=== PATIENT | female | born 1990 | race Hispanic/Latino ===

== ENCOUNTER 2017-02-28 15:27 | Emergency (ER) | payer MEDICAID | END 2017-02-28 16:23 | disposition home or self-care (01) | LOC: EDH 15:27 | DX: N61.0 Mastitis without abscess (principal); Z98.890 Other specified postprocedural states; Z87.891 Personal history of nicotine dependence ==

== ENCOUNTER 2019-05-05 13:15 | Emergency (ER) | payer MEDICAID, OTHER | END 2019-05-05 13:59 | disposition home or self-care (01) | LOC: EDH 13:15 | DX: F41.1 Generalized anxiety disorder (principal); F31.9 Bipolar disorder, unspecified; F20.9 Schizophrenia, unspecified; Z72.0 Tobacco use ==

== ENCOUNTER 2020-11-20 11:10 | Emergency (ER) | payer OTHER ==
[~2020-11-20] VITALS: Ht 165.1 cm; Wt 59.0 kg
[2020-11-20 11:12] VITALS: BP 125/72
[2020-11-20] MEDS ORDERED: FLUORESCEIN SODIUM 1 STRIP STRIP OP SCH (11:30)
[2020-11-20] MEDS ORDERED: TETRACAINE HCL 0.5% 4 ML OPHTH SOLN OP SCH (11:30)
[2020-11-20] MEDS ORDERED: NA BORATE/BORIC AC/H2O/NACL 120 ML OPHTH IRRIG SOLN OP SCH (11:30)
[2020-11-20 11:39] VITALS: BP 101/60
[2020-11-20] MEDS ORDERED: GENTAMICIN SULFATE 0.3% 3.5 GM OPHTH OINT OU SCH (12:33)
[2020-11-20] MEDS ORDERED: OFLO5DRO OU (12:55)
== END 2020-11-20 14:06 | disposition home or self-care (01) ==
LOC: EDH 11:10
DX: S05.01XA Injury of conjunctiva and corneal abrasion without foreign body, right eye, initial encounter (principal); J45.909 Unspecified asthma, uncomplicated; H57.12 Ocular pain, left eye; X58.XXXA Exposure to other specified factors, initial encounter; Y93.89 Activity, other specified; Y92.89 Other specified places as the place of occurrence of the external cause; Y99.8 Other external cause status

== ENCOUNTER 2021-09-18 12:29 | Emergency (ER) | payer OTHER ==
[~2021-09-18] VITALS: Ht 165.1 cm; Wt 54.4 kg
[~2021-09-18 12:29] MED LIST: OFLO5DRO OU
[2021-09-18 12:31] VITALS: BP 101/42
[2021-09-18] MEDS ORDERED: TETANUS/DIPHTHERIA TOXOID [ADULT] 0.5 ML VIAL IM ONE (14:30)
[2021-09-18] MEDS ORDERED: KETOROLAC 30MG VIAL (30MG/ML) IM ONE (15:35)
[2021-09-18] MEDS ORDERED: CEPH500B PO (15:37)
== END 2021-09-18 15:45 | disposition home or self-care (01) ==
LOC: EDH 12:29
DX: S91.331A Puncture wound without foreign body, right foot, initial encounter (principal); X58.XXXA Exposure to other specified factors, initial encounter; Y93.89 Activity, other specified; Y92.89 Other specified places as the place of occurrence of the external cause; Y99.8 Other external cause status
CPT/HCPCS: 99284; 90714; 73630; 96372; 90471; J1885

== ENCOUNTER 2021-10-04 08:14 | Emergency (ER) | payer OTHER ==
[~2021-10-04] VITALS: Ht 165.1 cm; Wt 54.9 kg
[~2021-10-04 08:14] MED LIST changes: +CEPH500B PO
[2021-10-04 08:55] LABS: BASOPHILS % (AUTO) 0.4 % (0.0-5.0); EOSINOPHILS % (AUTO) 2.6 % (0.0-8.0); HEMATOCRIT 39.6 % (36-48); LYMPHOCYTES % (AUTO) 20.9 % (21.0-51.0); MEAN CORPUSCULAR HEMOGLOBIN 30.3 pg (27.0-33.0); MEAN CORPUSCULAR HGB CONC 33.3 g/dL (32.0-36.0); MEAN CORPUSCULAR VOLUME 90.8 fL (79-99); MONOCYTES % (AUTO) 5.7 % (3.0-13.0); PLATELET COUNT (AUTO) 241 K/uL (130-400); RED BLOOD CELL COUNT(AUTO) 4.36 MIL/uL (4.00-5.50); RED CELL DISTRIBUTION WIDTH 13.4 % (11.0-15.5); WHITE BLOOD COUNT (AUTO) 11.1 K/uL (4.8-10.8)
[2021-10-04 09:00] LABS: CARBON DIOXIDE 28 mmol/L (21-32); CHLORIDE 103 mmol/L (101-111); CREATININE 0.7 mg/dL (0.5-1.5); GLOMERULAR FILTR. RATE CALC 104 mL/min (>60); GLUCOSE,RANDOM 103 mg/dL (70-105); POTASSIUM 4.1 mmol/L (3.5-5.1); SODIUM SERUM 138 mmol/L (136-145); UREA NITROGEN, BLOOD 12 mg/dL (7-18)
[2021-10-04] MEDS ORDERED: TETANUS/DIPHTHERIA TOXOID [ADULT] 0.5 ML VIAL IM ONE (09:00)
[2021-10-04] MEDS ORDERED: HYDROCODONE/ACETAMINOPHEN 5/325 MG TAB PO ONE (09:00)
[2021-10-04 09:05] LABS: ALANINE AMINOTRANSFERASE 28 U/L (12-78); ALBUMIN 3.8 g/dL (3.5-5.0); ASPARTATE AMINOTRANSFERASE 23 U/L (10-37); TOTAL PROTEIN, SERUM 7.2 g/dL (6.0-8.3)
[2021-10-04 09:06] LABS: CRP QUANTITATIVE < 2.00 mg/L (0.00-9.0)
[2021-10-04] MEDS ORDERED: LIDOCAINE HCL-MPF 2% 10ML AMP IJ ONE (09:07)
[2021-10-04 10:40] VITALS: BP 126/72
[2021-10-04] MEDS ORDERED: IBUP-2070 PO (10:51)
[2021-10-04] MEDS ORDERED: CLIN-141 PO (10:51)
[2021-10-04] MEDS ORDERED: CLINDAMYCIN 150 MG CAP ONE (10:53)
[2021-10-04] MEDS ORDERED: CLINDAMYCIN 150 MG CAP PO ONE (11:00)
[2021-10-04] MEDS ORDERED: MORPHINE 4 MG SYG IM SCH (11:30)
== END 2021-10-04 11:23 | disposition home or self-care (01) ==
LOC: EDH 08:14
DX: L02.611 Cutaneous abscess of right foot (principal); F20.9 Schizophrenia, unspecified; Z87.19 Personal history of other diseases of the digestive system
CPT/HCPCS: 99284; 10061; 80053; 85025; 86140; 36415; 90714; 73660; 90471; 96372; J2270; J3490

== ENCOUNTER 2021-11-21 01:34 | Emergency (ER) | payer OTHER ==
[~2021-11-21 01:34] MED LIST changes: +CLIN-141 PO; +IBUP-2070 PO
[2021-11-21 02:05] LABS: APPEARANCE,URINE CLEAR (CLEAR); BILIRUBIN,URINE NEGATIVE (NEGATIVE); COLOR,URINE LIGHT-YELLOW (YELLOW); GLUCOSE, URINE (UA) NEGATIVE (NEGATIVE); KETONES,URINE NEGATIVE (NEGATIVE); LEUKOCYTE ESTERASE ,URINE NEGATIVE Leu/uL (NEGATIVE); NITRATE,URINE NEGATIVE (NEGATIVE); OCCULT BLOOD,URINE NEGATIVE (NEGATIVE); PROTEIN,URINE 20 mg/dL (NEGATIVE); UROBILINOGEN,URINE 0.2 mg/dL (0.2-1.0)
[2021-11-21 02:06] LABS: HCG,QUALITATIVE URINE NEGATIVE (NEGATIVE)
[2021-11-21 02:09] LABS: AMPHET/METH SCREEN,URINE NEGATIVE (NEGATIVE); BARBITURATE SCREEN, URINE NEGATIVE (NEGATIVE); BENZODIAZEPINES SCREEN,URINE NEGATIVE (NEGATIVE); CANNABINOID SCREEN,URINE NEGATIVE (NEGATIVE); COCAINE SCREEN,URINE POSITIVE (NEGATIVE); PHENCYCLIDINE SCREEN,URINE NEGATIVE (NEGATIVE)
[2021-11-21 02:11] LABS: BACTERIA,URINE RARE /HPF (None Seen); MUCUS,URINE FEW LPF (None Seen); SQUAMOUS EPITHELIAL CELL,UR FEW /HPF (0-2)
[2021-11-21] MEDS ORDERED: ACETAMINOPHEN 500 MG TABLET ONE (04:54)
[2021-11-21 06:16] VITALS: BP 134/74
== END 2021-11-21 06:25 | disposition home or self-care (01) ==
LOC: EDH 01:34
DX: R51.9 Headache, unspecified (principal); R11.10 Vomiting, unspecified; F20.9 Schizophrenia, unspecified; F31.9 Bipolar disorder, unspecified; F17.200 Nicotine dependence, unspecified, uncomplicated; Z79.1 Long term (current) use of non-steroidal anti-inflammatories (NSAID)
CPT/HCPCS: 70450; 80305; 81001; 81025

== ENCOUNTER 2022-08-15 06:30 | Emergency (ER) | payer OTHER ==
[~2022-08-15] VITALS: Ht 162.6 cm; Wt 69.4 kg
[2022-08-15] MEDS ORDERED: TETANUS/DIPHTHERIA TOXOID [ADULT] 0.5 ML VIAL IM ONE (07:00)
[2022-08-15 07:11] LABS: BASOPHILS % (AUTO) 0.6 % (0.0-5.0); EOSINOPHILS % (AUTO) 4.9 % (0.0-8.0); HEMATOCRIT 38.7 % (36-48); LYMPHOCYTES % (AUTO) 31.9 % (21.0-51.0); MEAN CORPUSCULAR HEMOGLOBIN 27.5 pg (27.0-33.0); MEAN CORPUSCULAR HGB CONC 32.8 g/dL (32.0-36.0); MEAN CORPUSCULAR VOLUME 83.9 fL (79-99); MONOCYTES % (AUTO) 7.1 % (3.0-13.0); NEUTROPHILS % (AUTO) 55.2 % (40.0-77.0); PLATELET COUNT (AUTO) 249 K/uL (130-400); RED BLOOD CELL COUNT(AUTO) 4.61 MIL/uL (4.00-5.50); RED CELL DISTRIBUTION WIDTH 12.9 % (11.0-15.5); WHITE BLOOD COUNT (AUTO) 6.3 K/uL (4.8-10.8)
[2022-08-15 07:26] LABS: ALBUMIN 3.2 g/dL (3.5-5.0); CREATININE 0.6 mg/dL (0.5-1.5); CRP QUANTITATIVE 5.7 mg/L (0.00-9.0); POTASSIUM 3.8 mmol/L (3.5-5.1); TOTAL PROTEIN, SERUM 7.1 g/dL (6.0-8.3)
[2022-08-15] MEDS ORDERED: IBUPROFEN 600 MG TABLET PO ONE (08:00)
[2022-08-15] MEDS ORDERED: CEPH500B PO (08:19)
[2022-08-15] MEDS ORDERED: IBUP-2070 PO (08:19)
[2022-08-15] MEDS ORDERED: CEPHALEXIN 500 MG CAPSULE ONE (08:27)
[2022-08-15] MEDS ORDERED: CEPHALEXIN 500 MG CAPSULE PO ONE (08:30)
[2022-08-15 08:54] VITALS: BP 126/78
== END 2022-08-15 09:05 | disposition home or self-care (01) ==
LOC: EDH 06:30
DX: S61.012A Laceration without foreign body of left thumb without damage to nail, initial encounter (principal); F17.200 Nicotine dependence, unspecified, uncomplicated; Z98.890 Other specified postprocedural states; Z79.899 Other long term (current) drug therapy; X58.XXXA Exposure to other specified factors, initial encounter; Y93.89 Activity, other specified; Y92.89 Other specified places as the place of occurrence of the external cause; Y99.8 Other external cause status
CPT/HCPCS: 36415; 73130; 80053; 84703; 85025; 86140; 90471; 90714

== ENCOUNTER 2022-09-27 17:43 | Emergency (ER) | payer OTHER ==
[~2022-09-27] VITALS: Ht 162.6 cm; Wt 66.7 kg
[2022-09-27 17:45] VITALS: BP 124/69; PULSE 77; RESP 20
[2022-09-27] MEDS ORDERED: BACITRACIN 1 EACH PACKET TP ONE (18:30)
[2022-09-27] MEDS ORDERED: BACI30OI6 TP (19:28)
[2022-09-27] MEDS ORDERED: CEPH500B PO (20:07)
== END 2022-09-27 20:11 | disposition home or self-care (01) ==
LOC: EDH 17:43
DX: S63.602A Unspecified sprain of left thumb, initial encounter (principal); S60.312A Abrasion of left thumb, initial encounter; L02.416 Cutaneous abscess of left lower limb; W23.0XXA Caught, crushed, jammed, or pinched between moving objects, initial encounter; Y93.89 Activity, other specified; Y92.89 Other specified places as the place of occurrence of the external cause; Y99.8 Other external cause status; F41.9 Anxiety disorder, unspecified; F32.A Depression, unspecified; F20.9 Schizophrenia, unspecified; F17.200 Nicotine dependence, unspecified, uncomplicated
CPT/HCPCS: 10060; 73140